=== PATIENT | female | born 1965 | race Caucasian/White ===

== ENCOUNTER 2019-08-27 09:40 | Emergency (ER) | payer BC ==
[~2019-08-27] VITALS: Ht 165.1 cm; Wt 85.7 kg
[2019-08-27 09:48] VITALS: Ht 165.1 cm; Wt 85.7 kg
[2019-08-27 10:45] VITALS: BP 158/93
== END 2019-08-27 10:45 | disposition home or self-care (01) ==
LOC: ED 09:40
DX: T63.441A Toxic effect of venom of bees, accidental (unintentional), initial encounter (principal); H57.11 Ocular pain, right eye; I10 Essential (primary) hypertension; M79.7 Fibromyalgia; F31.9 Bipolar disorder, unspecified; E66.9 Obesity, unspecified; Z68.31 Body mass index [BMI] 31.0-31.9, adult; Z98.84 Bariatric surgery status; Z98.890 Other specified postprocedural states; Y92.89 Other specified places as the place of occurrence of the external cause